=== PATIENT | female | born 1990 | race American Indian/Alaskan Native ===

== ENCOUNTER 2017-08-21 20:13 | Emergency (ER) | payer MEDICAID, OTHER ==
[2017-08-21 20:31] VITALS: BP 134/89
[2017-08-21] MEDS ORDERED: Pantoprazole 40 MG Tab.CR PO ONE (20:45)
--- NOTE | 2017-08-21 20:48 | EDM.PDOC ---
ED HPI GENERAL MEDICAL PROBLEM - General Chief Complaint: Abdominal Pain Stated Complaint: [id number] "GALBLADDER PAIN"- NO GALBLADDER Time Seen by Provider: 08/21/17 20:45 Source of Information: Reports: Patient History Limitations: Reports: No Limitations - History of Present Illness INITIAL COMMENTS - FREE TEXT/NARRATIVE: c/o RUQ pain saw PMD today who rec' mylanta/maalox but '0' did try a zantac 150mg but still '0'. appetite ok can't eat much due to states 36 weeks. Right Upper Abdomen Pain Score (Numeric/FACES): 7 - Related Data Allergies Allergy/AdvReac Type Severity Reaction Status Date / Time amoxicillin [Amoxicillin] Allergy Unknown unknown Verified 09/16/14 23:59 cefaclor [From Ceclor] Allergy Unknown unknown Verified 09/16/14 23:59 Home Meds: Home Meds Ferrous Gluconate [Iron] 325 mg PO DAILY 03/31/13 [History] Vit #108/Iron/FA [ One Tablet] 1 each PO DAILY 03/31/13 [ History] Loperamide [Imodium] 2 mg PO Q4H PRN 09/12/14 [History] Acetaminophen [Tylenol Extra Strength] 100 mg PO ASDIRECTED PRN 09/16/14 [ History] Ibuprofen [Motrin] 600 mg PO ASDIRECTED PRN 09/16/14 [History] Past Medical History [employer] History: Reports: - Past Surgical History GI Surgical History: Reports: Appendectomy, Cholecystectomy Social & Family History - Family History Family Medical History: Noncontributory - Tobacco Use Smoking Status *Q: Never Smoker Second Hand Smoke Exposure: No - Recreational Drug Use Recreational Drug Use: No ED ROS GENERAL - Review of Systems Review Of Systems: ROS reveals no pertinent complaints other than HPI. ED EXAM, GI/ABD - Physical Exam Exam: See Below Exam Limited By: No Limitations General Appearance: Alert, WD/WN, Mild Distress, Other ([place]) Ears: Hearing Grossly Normal Throat/Mouth: Normal Voice, No Airway Compromise Head: Atraumatic Neck: Non-Tender, Full Range of Motion Respiratory/Chest: No Respiratory Distress Cardiovascular: Regular Rate, Rhythm GI/Abdominal Exam: Tender, Other (RUQ). No: Distended, Guarding, Rigid, Rebound Neurological: Alert, Oriented, Normal Cognition, Normal Gait, No Motor/Sensory Deficits Psychiatric: Normal Affect, Normal Mood Skin Exam: Warm, Dry, Normal Color Lymphatic: No Adenopathy Course - Vital Signs Last Recorded V/S: Last Vital Signs Temp 36.9 C 08/21/17 20:20 Pulse 77 08/21/17 20:20 Resp 18 08/21/17 20:20 BP 134/89 08/21/17 20:20 Pulse Ox 100 08/21/17 20:20 - Orders/Labs/Meds Labs: Laboratory Tests 08/21/17 08/21/17 Range/Units 20:50 20:50 WBC 7.4 (5.0-10.0) 10^3/uL RBC 4.50 (4.2-5.4) 10^6/uL Hgb 12.5 (12.0-16.0) g/dL Hct 37.7 (37.0-47.0) % MCV 83.8 (80-100) fL MCH 27.8 (27.0-34.0) pg MCHC 33.2 (33.0-35.0) g/dL Plt Count 237 (150-450) 10^3/uL Neut % (Auto) 68.3 (42.2-75.2) % Lymph % (Auto) 24.5 (20.5-50.1) % [place] % (Auto) 4.5 (2-8) % Eos % (Auto) 2.4 (1.0-3.0) % Baso % (Auto) 0.3 (0.0-1.0) % Sodium 135 (135-145) mmol/L Potassium 3.8 (3.6-5.0) mmol/L Chloride 104 (101-111) mmol/L Carbon Dioxide 22.0 (21.0-31.0) mmol/L Anion Gap 12.8 BUN 5 L (7-18) mg/dL Creatinine 0.5 L (0.6-1.3) mg/dL Est Cr Clr Drug Dosing 164.35 mL/min Estimated GFR (MDRD) > 60 BUN/Creatinine Ratio 10.00 Glucose 115 H (74-105) mg/dL Calcium 8.8 (8.4-10.2) mg/dl Total Bilirubin 0.3 (0.2-1.0) mg/dL AST 21 (10-42) IU/L ALT 16 (10-60) IU/L Alkaline Phosphatase 165 H (42-121) IU/L Total Protein 6.9 (6.7-8.2) g/dl Albumin 2.9 L (3.2-5.5) g/dl Globulin 4.0 Albumin/Globulin Ratio 0.73 Amylase 70 (28-100) U/L Lipase 26 (22-51) U/L Meds: Medications Discontinued Medications Generic Name Dose Route Start Last Admin Trade Name Freq PRN Reason Stop Dose Admin Pantoprazole Sodium 40 mg 08/21/17 20:45 08/21/17 20:52 Protonix PO 08/21/17 20:46 40 mg ONETIME ONE Administration - Re-Assessments/Exams Free Text/Narrative Re-Assessment/Exam: 08/21/17 21:28 results discussed with pt who is feeling better s/p protonix Departure - Departure Time of Disposition: 21:29 Disposition: Home, Self-Care 01 Condition: Good Clinical Impression: GERD (gastroesophageal reflux disease) Qualifiers: Esophagitis presence: without esophagitis Qualified Code(s): K21.9 - Gastro- esophageal reflux disease without esophagitis - Discharge Information Instructions: Food Choices for Gastroesophageal Reflux Disease, Adult Referrals: Annie Leonardo MD [Primary Care Provider] - Forms: ED Department Discharge Additional Instructions: 1) Dr Santizo tomorrow for GERD meds 2) recheck if there is any change or concern
[2017-08-21 21:17] LABS: CHLORIDE,CL 104 mmol/L (101-111); SODIUM,NA 135 mmol/L (135-145)
== END 2017-08-21 21:34 | disposition home or self-care (01) ==
LOC: DL.ED 20:13
DX: O99.613 Diseases of the digestive system complicating pregnancy, third trimester (principal); K21.9 Gastro-esophageal reflux disease without esophagitis; Z88.1 Allergy status to other antibiotic agents; Z79.899 Other long term (current) drug therapy; Z3A.36 36 weeks gestation of pregnancy
CPT/HCPCS: 36415; 80053; 82150; 83690; 85025; 99284; A9270

== ENCOUNTER 2017-09-12 00:11 | Inpatient (IN) | payer MEDICAID, OTHER ==
[~2017-09-12 00:11] MED LIST: Acetaminophen 325 MG Tab PO PRN; Carboprost Tromethamine 250 MCG/1 ML Amp IM PRN; Lactated Ringers 1,000 ML IV SCH; Lidocaine 1% 30 ML SDV INJECT PRN; Methylergonovine 0.2 MG/1 ML Amp IM PRN; Misoprostol 400 MCG (4 X 100 MCG TAB) RECTAL PRN; Ondansetron 4 MG/2 ML SDV IV PRN; Oxytocin/Normal Saline 30 UNIT/500 ML BAG IV SCH; Sodium Chloride 0.9% 10 ML Syringe FLUSH PRN; Tranexamic Acid 1,000 MG in Sodium Chloride 0.9% 100 ML IV PRN; Zolpidem 5 MG Tab PO PRN
[2017-09-12] MEDS: Misoprostol 25 MCG (1/4 of 100 MCG) Tab VAG PRN ×2 (01:43→06:19)
[2017-09-12] MEDS ORDERED: Lidocaine 1% 30 ML SDV INJECT PRN (06:41)
[2017-09-12] MEDS ORDERED: fentaNYL 100 MCG/2 ML SDV IVPUSH PRN (06:41)
[2017-09-12] MEDS ORDERED: Nalbuphine 10 MG/1 ML Vial IM PRN (06:45)
--- NOTE | 2017-09-12 12:30 | PN ---
DATE: 09/12/2017 SUBJECTIVE: The patient is doing well. She has had 2 doses of Cytotec and now has regular contractions that have become much more painful; and she has had 1 dose of Nubain which has helped her relax, noting some more pelvic pressure. OBJECTIVE: Vital Signs: Have remained stable. Last blood pressure was in the 120s over 80s, and she was afebrile. Pelvic: heart tones tracing at 130 beats per minute baseline with moderate [id number] variability. Accelerations were noted, and the baby is getting more active again after a brief period of rest. [place]; tracing about every 2 minutes. Cervix 6 cm dilated, 75%, remains posterior, but -2 station. Artificial rupture of membranes performed with return of clear fluid. The patient tolerated well. ASSESSMENT: 1. A 39 and 6/7 weeks' gestation by last menstrual period, confirmed with 9- week 5-day quick look ultrasound. 2. 6, para 4-0-1-4. 3. History of hemorrhage. 4. History of gestational hypertension. 5. History of macrosomic infant. 6. History of precipitous deliveries. 7. History of spontaneous x1. PLAN: Continue to monitor her labor and anticipate vaginal delivery. [facility] /[id number]
[2017-09-12] MEDS ORDERED: Benzocaine/Menthol 20%-0.5% Spray 56 GM Canister TOP PRN (13:31)
[2017-09-12] MEDS ORDERED: Simethicone 80 MG Tab.Chew PO PRN (13:31)
[2017-09-12] MEDS: Ibuprofen 800 MG Tab PO PRN ×2 (14:54→21:51)
[2017-09-12] MEDS: Docusate Sodium 100 MG Cap PO PRN (21:51)
--- NOTE | 2017-09-12 23:18 | DEL ---
DATE: 09/12/2017 PREPROCEDURE DIAGNOSES: 1. A 39 and 6/7 weeks' intrauterine based on last menstrual period and quick look 9 week 5 day ultrasound. 2. 6, para 4-0-1-4. 3. History of hemorrhage. 4. History of gestational hypertension. 5. History of precipitous deliveries. 6. History of macrosomia. 7. Equivocal. 8. Blood type A positive. 9. Group B strep negative. 10.History of miscarriage. 11.Chronic diarrhea. 12.Ex-smoker. 13.Acid reflux. POSTPROCEDURE DIAGNOSES: 1. A 39 and 6/7 weeks' intrauterine based on last menstrual period and quick look 9 week 5 day ultrasound. 2. 6, para 4-0-1-4. 3. History of hemorrhage. 4. History of gestational hypertension. 5. History of precipitous deliveries. 6. History of macrosomia. 7. Equivocal. 8. Blood type A positive. 9. Group B strep negative. 10.History of miscarriage. 11.Chronic diarrhea. 12.Ex-smoker. 13.Acid reflux. 14.Shoulder dystocia. 15.Delivery of macrosomic . BRIEF HISTORY: A 26-year-old with the above-listed diagnoses, brought into the hospital at midnight for induction with Cytotec. She had 2 doses of this medication and was able to get into a nice regular labor pattern, augmented with artificial rupture of membranes. After about 5 hours of stage I and pushing for less than 5 minutes, she was able to deliver a viable female , weighing 4395 g, and weight of 9 pounds 11 ounces. The patient did quite well with details as below. DESCRIPTION OF PROCEDURE: With the patient in dorsal lithotomy position, delivered a viable female over intact perineum in the OA position. Once the head delivered, the shoulders were not following thereafter, so, the patient was placed in Aut[place] position and suprapubic pressure applied, baby delivered readily thereafter, needed stimulation in order to get the baby to start breathing. Mouth and nose were then bulb suctioned and baby had a vigorous cry and was placed up on the mother's abdomen. After a delay, three-vessel umbilical cord was doubly clamped and cut and cord blood sample obtained. Placenta then delivered by gentle cord traction and concomitant uterine massage about 5 minutes after delivery of the baby, inspected and it was intact. Uterus firm. Labia and vagina were inspected and there were no lacerations that were bleeding or needing any repair. The patient and baby both tolerated procedure well. COMPLICATIONS: None. Shoulder dystocia was brief and well managed. ESTIMATED BLOOD LOSS: 300 mL. DISPOSITION: Mother and baby to remain in the room at this time to initiate . [facility] /[id number] JESSICA
[2017-09-13] MEDS: Ibuprofen 800 MG Tab PO PRN ×2 (08:16→17:25)
[2017-09-13] MEDS: Docusate Sodium 100 MG Cap PO PRN (08:16)
[2017-09-13] MEDS: Prenatal Multivitamin with Calcium/Folic Acid/Iron Tab PO SCH (08:16)
[2017-09-14] MEDS: Ibuprofen 800 MG Tab PO PRN (10:09)
[2017-09-14] MEDS: Docusate Sodium 100 MG Cap PO PRN (10:10)
[2017-09-14] MEDS: Prenatal Multivitamin with Calcium/Folic Acid/Iron Tab PO SCH (10:10)
[2017-09-14 11:13] VITALS: BP 129/80
[2017-09-14] MEDS ORDERED: Measles, Mumps & Rubella Vaccine 0.5 ML SDV SUBCUT ONE (11:45)
--- NOTE | 2017-09-14 23:23 | DISCH ---
HISTORY: This patient is a 26-year-old, multigravida, who Dr. Santizo has thoroughly discussed with me 2 days ago. I have been asked to round on her this weekend and to discharge her today. Please see Dr. Santizo's admission H and P. The patient did have suspected macrosomia because of previous history of macrosomia. She also had prior history of gestational hypertension. The patient was at 39 weeks 6 days' gestation by LMP and by early ultrasound. She was admitted for artificial rupture of membranes and induction of labor. The patient is nonimmune to rubella and will be receiving MMR injection and vaccination before discharge today. The patient did proceed on to have a spontaneous vaginal delivery with a mild or perhaps 15 seconds of shoulder dystocia. She did have a large macrosomic 9 pounds 11 ounce baby girl. The weight in grams was 4395. scores were 7 and [address] Please see [address] Santizo's dictated delivery note for further detail and please see the baby's admission data. The patient is bottle feeding. There were no episiotomy and no lacerations at delivery. Admission hemoglobin was 12.1, and discharge hemoglobin is still pending. The patient was rounded on yesterday by myself. She is also seen again today on 09/14/2017, or the second day. The routine discharge instructions were given to her, including to continue taking her vitamins and to have adequate oral hydration as well as healthy well-balanced nutritional measures. She is bottle feeding as mentioned above. Also, she was instructed to please contact us if any excess fever, excess pain, or excess vaginal bleeding, or any leg pain, chest pain, breast pain, etc. She was also encouraged to do gradual progressive ambulation at home. She assures me that she will call us at once if any questions or problems whatsoever. The patient has also signed papers and the federal permit for bilateral tubal ligation. I did review with her the importance of calling Dr. Santizo's nurse in the relatively near future so that the clinic can establish an appointment with the [employer] that would be doing the tubal ligation, and that would be done at approximately 6 weeks or more after delivery. She declines any other contraceptive measures at this moment. FOLLOWUP APPOINTMENT: Please see discussion above and in addition to that, she will see Dr. Santizo in approximately 6 weeks for exam. The baby will be seen in the clinic on Friday of this coming week or approximately [address] Santizo's will be gone, but it appears that Dr. Grimes would do a followup exam on her baby girl. MEDICATIONS: other discharge medications consisted of instructions to take either Tylenol or acetaminophen or ibuprofen/Motrin p.r.n. as instructed on the container. She also will utilize Colace p.r.n. and vitamins. CONDITION ON DISCHARGE: Good. FINAL DIAGNOSES: 1. at 39 weeks 6 days gestation, delivered. 2. Spontaneous vaginal delivery with no lacerations and no episiotomy by Dr. Annie Santizo. OTHER FINAL DIAGNOSES: 1. The patient is receiving MMR vaccination on discharge. 2. Mild 15 seconds of shoulder dystocia at delivery. 3. Delivery of macrosomic, 9 pounds 11 ounce baby girl with scores of 7 and 9. 4. History of gestational hypertension. [facility] /[id number]
--- NOTE | 2017-09-15 10:38 | PN ---
DATE: 09/13/2017 SUBJECTIVE: Dr. Santizo has thoroughly discussed this patient with me recently since I will be rounding on her today. Today is day #1. The patient is ambulating well and tolerating diet and having no problems with bladder or bowel functions. Her lochia flow is within normal limits subjectively. OBJECTIVE: Vital Signs: All within normal limits. Genitourinary: Uterine fundus is firm. Extremities: Reveal negative Homans sign bilaterally and no edema essentially. No calf tenderness. LABORATORY DATA: The admission hemoglobin was 12.1. ASSESSMENT: Stable course. PLAN: The patient will continue with progressive ambulation and oral hydration, and healthy nutrition. We did briefly review with her, again some of the discharge instructions that we will go into in more detail tomorrow on Friday at discharge. [facility] /[id number]
== END 2017-09-14 13:15 | disposition home or self-care (01) | DRG 775 ==
LOC: EEVIPCON → DL.OBCHECK 00:11 → DL.OB 00:12 → OBSVTOIN 13:14
PROVIDERS: ADMIT Family Medicine; ATTEND Family Medicine
PROC: 10E0XZZ Delivery of Products of Conception, External Approach (ICD-10-PCS; principal; 2017-09-12)
PROC: 10907ZC Drainage of Amniotic Fluid, Therapeutic from Products of Conception, Via Natural or Artificial Opening (ICD-10-PCS; 2017-09-12)
PROC: 6A550ZT Pheresis of Cord Blood Stem Cells, Single (ICD-10-PCS; 2017-09-12)
PROC: 3E0234Z Introduction of Serum, Toxoid and Vaccine into Muscle, Percutaneous Approach (ICD-10-PCS; 2017-09-14)
DX: O36.63X0 Maternal care for excessive fetal growth, third trimester, not applicable or unspecified (principal); Z37.0 Single live birth; O66.0 Obstructed labor due to shoulder dystocia; O99.62 Diseases of the digestive system complicating childbirth; Z3A.39 39 weeks gestation of pregnancy; K52.9 Noninfective gastroenteritis and colitis, unspecified; K21.9 Gastro-esophageal reflux disease without esophagitis; Z28.3 Underimmunization status
CPT/HCPCS: 36415; 59409; 81001; 85027; 90471; 90707; A9270-GY; J2300; J2590; J3010; J7120

== ENCOUNTER 2018-11-22 06:24 | Emergency (ER) | payer MEDICAID, OTHER ==
--- NOTE | 2018-11-22 06:57 | EDM.PDOC ---
ED HPI GENERAL MEDICAL PROBLEM - General Chief Complaint: Gastrointestinal Problem Stated Complaint: PAINS IN GALLBLADDER? Time Seen by Provider: 11/22/18 06:57 Source of Information: Reports: Patient, RN, RN Notes Reviewed History Limitations: Reports: No Limitations - History of Present Illness INITIAL COMMENTS - FREE TEXT/NARRATIVE: Pt to ER with c/o RUQ pain that wraps around into the back. Patient states it began with burning in the right upper back in the middle of the night. Patient admits to nausea and diarrhea. Denies vomiting. Denies urinary sx. Denies fever or chills. Patient denies chances of , states she is currently having her menses. Patient states her gallbladder and appendix have been removed. Denies hx of pancreatitis or kidney stones. Denies drinking alcohol. 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: , 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 , Other (See Below) Other HAT BODY SORTER History: Hx of PPH and Gestational hypertension - Past Surgical History GI Surgical History: Reports: Appendectomy, Cholecystectomy Social & Family History - Family History Family Medical History: Noncontributory - Tobacco Use Smoking Status *Q: Current Every Day Smoker Years of Tobacco use: 14 Packs/Tins Daily: 0.5 Second Hand Smoke Exposure: Yes - Caffeine Use Caffeine Use: Reports: Coffee, Energy Drinks - Recreational Drug Use Recreational Drug Use: No ED ROS GENERAL - Review of Systems Review Of Systems: ROS reveals no pertinent complaints other than HPI. ED EXAM, GI/ABD - Physical Exam Exam: See Below Exam Limited By: No Limitations General Appearance: Alert, WD/WN, Moderate Distress Eyes: Bilateral: Normal Appearance, EOMI Ears: Normal External Exam, Hearing Grossly Normal Nose: Normal Inspection Throat/Mouth: Normal Inspection, Normal Voice, No Airway Compromise Head: Atraumatic, Normocephalic Neck: Normal Inspection, Supple, Non-Tender, Full Range of Motion Respiratory/Chest: No Respiratory Distress, Lungs Clear, Normal Breath Sounds, No Accessory Muscle Use, Chest Non-Tender Cardiovascular: Normal Peripheral Pulses, Regular Rate, Rhythm, No Edema, No Gallop, No JVD, No Murmur, No Rub GI/Abdominal Exam: Normal Bowel Sounds, Soft, No Organomegaly, No Distention, No Abnormal Bruit, No Mass, Pelvis Stable, Tender (RUQ) (Female) Exam: Deferred Rectal (Female) Exam: Deferred Back Exam: Normal Inspection, Full Range of Motion. No: CVA Tenderness (L), CVA Tenderness (R) Extremities: Normal Inspection, Normal Range of Motion, Non-Tender, Normal Capillary Refill, No Pedal Edema Neurological: Alert, Oriented, CN II-XII Intact, Normal Cognition, Normal Gait, Normal Reflexes, No Motor/Sensory Deficits Psychiatric: Normal Affect, Normal Mood Skin Exam: Warm, Dry, Intact, Normal Color, No Rash Lymphatic: No Adenopathy Course - Vital Signs Last Recorded V/S: Last Vital Signs Temp 97.7 F 11/22/18 07:39 Pulse 70 11/22/18 08:08 Resp 18 11/22/18 08:08 BP 121/75 11/22/18 08:08 Pulse Ox 100 11/22/18 08:08 - Orders/Labs/Meds Orders: Active Orders 24 hr Category Date Time Status Peripheral IV Care [RC] . DIRECTED Care 11/22/18 07:08 Active Sodium Chloride 0.9% [Saline Flush] Med 11/22/18 07:08 Active 10 ml FLUSH ASDIRECTED PRN Peripheral IV Insertion Adult [OM.PC] Stat Oth 11/22/18 07:07 Ordered Medication Orders Sodium Chloride (Saline Flush) 10 ml FLUSH ASDIRECTED PRN PRN Reason: Keep Vein Open Last Admin: 11/22/18 07:19 Dose: 10 ml Labs: Laboratory Tests 11/22/18 11/22/18 11/22/18 Range/Units 07:09 07:09 07:27 WBC 8.8 (5.0-10.0) 10^3/uL RBC 4.92 (4.2-5.4) 10^6/uL Hgb 13.9 D (12.0-16.0) g/dL Hct 41.2 (37.0-47.0) % MCV 83.7 (80-100) fL MCH 28.3 (27.0-34.0) pg MCHC 33.7 (33.0-35.0) g/dL Plt Count 311 D (150-450) 10^3/uL Neut % (Auto) 42.9 (42.2-75.2) % Lymph % (Auto) 42.3 (20.5-50.1) % [place] % (Auto) 6.3 (2-8) % Eos % (Auto) 8.3 H (1.0-3.0) % Baso % (Auto) 0.2 (0.0-1.0) % Sodium 141 (135-145) mmol/L Potassium 3.7 (3.6-5.0) mmol/L Chloride 106 (101-111) mmol/L Carbon Dioxide 27.0 (21.0-31.0) mmol/L Anion Gap 11.7 BUN 12 (7-18) mg/dL Creatinine 0.6 (0.6-1.3) mg/dL Est Cr Clr Drug Dosing 135.75 mL/min Estimated GFR (MDRD) > 60 BUN/Creatinine Ratio 20.00 Glucose 97 (74-105) mg/dL Calcium 8.6 (8.4-10.2) mg/dl Total Bilirubin 0.4 (0.2-1.0) mg/dL AST 18 (10-42) IU/L ALT 14 (10-60) IU/L Alkaline Phosphatase 55 (42-121) IU/L Total Protein 6.7 (6.7-8.2) g/dl Albumin 3.9 (3.2-5.5) g/dl Globulin 2.8 Albumin/Globulin Ratio 1.39 Amylase 58 (28-100) U/L Lipase 36 (22-51) U/L Urine Color Yellow (YELLOW) Urine Appearance Slightly cloudy (CLEAR) Urine pH 7.0 (5.0-9.0) Ur Specific [place] 1.020 (1.005-1.030) Urine Protein Negative (NEGATIVE) Urine Glucose (UA) Negative (NEGATIVE) Urine Ketones Negative (NEGATIVE) Urine Occult Blood Trace-intact H (NEGATIVE) Urine Nitrite Negative (NEGATIVE) Urine Bilirubin Negative (NEGATIVE) Urine Urobilinogen 0.2 (0.2-1.0) mg/dL Ur Leukocyte Esterase Negative (NEGATIVE) Urine RBC 0-5 /HPF Urine WBC 0-5 (0-5/HPF) /HPF Ur Epithelial Cells Moderate H (NOT SEEN) /HPF Amorphous Sediment Many H (NOT SEEN) /HPF Urine Bacteria Few (0-FEW/HPF) /HPF Urine Mucus Few H (NOT SEEN) /LPF Urine HCG, Qual Urine Opiates Screen (NEGATIVE) Ur Oxycodone Screen (NEGATIVE) Urine Methadone Screen (NEGATIVE) Ur Barbiturates Screen (NEGATIVE) U Tricyclic Antidepress (NEGATIVE) Ur Phencyclidine Scrn (NEGATIVE) Ur Amphetamine Screen (NEGATIVE) U Methamphetamines Scrn (NEGATIVE) Urine MDMA Screen (NEGATIVE) U Benzodiazepines Scrn (NEGATIVE) Urine Cocaine Screen (NEGATIVE) U Marijuana (THC) Screen (NEGATIVE) 11/22/18 11/22/18 Range/Units 07:27 07:27 WBC (5.0-10.0) 10^3/uL RBC (4.2-5.4) 10^6/uL Hgb (12.0-16.0) g/dL Hct (37.0-47.0) % MCV (80-100) fL MCH (27.0-34.0) pg MCHC (33.0-35.0) g/dL Plt Count (150-450) 10^3/uL Neut % (Auto) (42.2-75.2) % Lymph % (Auto) (20.5-50.1) % [place] % (Auto) (2-8) % Eos % (Auto) (1.0-3.0) % Baso % (Auto) (0.0-1.0) % Sodium (135-145) mmol/L Potassium (3.6-5.0) mmol/L Chloride (101-111) mmol/L Carbon Dioxide (21.0-31.0) mmol/L Anion Gap BUN (7-18) mg/dL Creatinine (0.6-1.3) mg/dL Est Cr Clr Drug Dosing mL/min Estimated GFR (MDRD) BUN/Creatinine Ratio Glucose (74-105) mg/dL Calcium (8.4-10.2) mg/dl Total Bilirubin (0.2-1.0) mg/dL AST (10-42) IU/L ALT (10-60) IU/L Alkaline Phosphatase (42-121) IU/L Total Protein (6.7-8.2) g/dl Albumin (3.2-5.5) g/dl Globulin Albumin/Globulin Ratio Amylase (28-100) U/L Lipase (22-51) U/L Urine Color (YELLOW) Urine Appearance (CLEAR) Urine pH (5.0-9.0) Ur Specific [place] (1.005-1.030) Urine Protein (NEGATIVE) Urine Glucose (UA) (NEGATIVE) Urine Ketones (NEGATIVE) Urine Occult Blood (NEGATIVE) Urine Nitrite (NEGATIVE) Urine Bilirubin (NEGATIVE) Urine Urobilinogen (0.2-1.0) mg/dL Ur Leukocyte Esterase (NEGATIVE) Urine RBC /HPF Urine WBC (0-5/HPF) /HPF Ur Epithelial Cells (NOT SEEN) /HPF Amorphous Sediment (NOT SEEN) /HPF Urine Bacteria (0-FEW/HPF) /HPF Urine Mucus (NOT SEEN) /LPF Urine HCG, Qual Negative Urine Opiates Screen Negative (NEGATIVE) Ur Oxycodone Screen Negative (NEGATIVE) Urine Methadone Screen Negative (NEGATIVE) Ur Barbiturates Screen Negative (NEGATIVE) U Tricyclic Antidepress Negative (NEGATIVE) Ur Phencyclidine Scrn Negative (NEGATIVE) Ur Amphetamine Screen Negative (NEGATIVE) U Methamphetamines Scrn Negative (NEGATIVE) Urine MDMA Screen Negative (NEGATIVE) U Benzodiazepines Scrn Negative (NEGATIVE) Urine Cocaine Screen Negative (NEGATIVE) U Marijuana (THC) Screen Negative (NEGATIVE) Meds: Medications Generic Name Dose Route Start Last Admin Trade Name Freq PRN Reason Stop Dose Admin Sodium Chloride 10 ml 11/22/18 07:08 11/22/18 07:19 Saline Flush FLUSH 10 ml ASDIRECTED PRN Administration Keep Vein Open Discontinued Medications Generic Name Dose Route Start Last Admin Trade Name Freq PRN Reason Stop Dose Admin Al Hydroxide/Mg Hydroxide 30 ml 11/22/18 08:02 11/22/18 08:06 Gi Cocktail PO 11/22/18 08:03 30 ml ONETIME ONE Administration Sodium Chloride 1,000 mls @ 999 mls/hr 11/22/18 07:08 11/22/18 07:19 Normal Saline IV 11/22/18 08:08 999 mls/hr .BOLUS ONE Administration Ondansetron HCl 4 mg 11/22/18 07:08 11/22/18 07:19 Zofran IV 11/22/18 07:09 4 mg ONETIME ONE Administration Departure - Departure Time of Disposition: 08:27 Disposition: Home, Self-Care 01 Condition: Fair Clinical Impression: RUQ abdominal pain - Discharge Information *PRESCRIPTION DRUG MONITORING PROGRAM REVIEWED*: No *COPY OF PRESCRIPTION DRUG MONITORING REPORT IN PATIENT NILA: No Instructions: Food Choices for Gastroesophageal Reflux Disease, Adult, Easy-to- Read, Gastroesophageal Reflux Disease, Adult, [id number], Indigestion, Easy-to -Read Forms: ED Department Discharge Additional Instructions: Use Ranitidine as directed Drink plenty of water Follow up with your primary care facility if no improvement - My Orders Last 24 Hours: My Active Orders 11/22/18 07:07 Peripheral IV Insertion Adult [OM.PC] Stat 11/22/18 07:08 Peripheral IV Care [RC] . DIRECTED Sodium Chloride 0.9% [Saline Flush] 10 ml FLUSH ASDIRECTED PRN - Assessment/Plan Last 24 Hours: My Active Orders 11/22/18 07:07 Peripheral IV Insertion Adult [OM.PC] Stat 11/22/18 07:08 Peripheral IV Care [RC] . DIRECTED Sodium Chloride 0.9% [Saline Flush] 10 ml FLUSH ASDIRECTED PRN
[2018-11-22] MEDS ORDERED: Ondansetron 4 MG/2 ML SDV IV ONE (07:08)
[2018-11-22] MEDS ORDERED: Sodium Chloride 0.9% 1,000 ML IV ONE (07:08)
[2018-11-22] MEDS ORDERED: Sodium Chloride 0.9% 10 ML Syringe FLUSH PRN (07:08)
[2018-11-22 07:52] LABS: ANION GAP 11.7; CHLORIDE,CL 106 mmol/L (101-111); SODIUM,NA 141 mmol/L (135-145)
[2018-11-22] MEDS ORDERED: GI Cocktail Oral Solution 30 ML PO ONE (08:02)
[2018-11-22 08:43] VITALS: BP 145/90; PULSE 62
== END 2018-11-22 08:45 | disposition home or self-care (01) ==
LOC: DL.ED 06:24
DX: R10.11 Right upper quadrant pain (principal); I10 Essential (primary) hypertension; F17.210 Nicotine dependence, cigarettes, uncomplicated; Z88.1 Allergy status to other antibiotic agents; Z88.8 Allergy status to other drugs, medicaments and biological substances; Z90.49 Acquired absence of other specified parts of digestive tract
CPT/HCPCS: 36415; 80053; 80305; 81001; 81025; 82150; 83690; 85025; 96361; 96374; 99284; A9270; J2405; J7030